=== PATIENT | female | born 1975 | race American Indian/Alaskan Native ===

== ENCOUNTER 2017-01-17 20:50 | Emergency (ER) | payer OTHER ==
[2017-01-17 21:59] LABS: Basophils % (Auto) 0.1 % (0.0-1.8); Eosinophils % (Auto) 2.2 % (0.0-4.3); Hematocrit 36.8 % (30.3-42.9); Hemoglobin 12.1 gm/dl (10.1-14.3); Mean Corpuscular HGB Conc 33 % (30-34); Mean Corpuscular Hemoglobin 26 pg (28-32); Mean Corpuscular Volume 80 fl (79-97); Platelet Count 154 K/mm3 (140-440); Red Blood Count 4.59 M/mm3 (3.65-5.03); Red Cell Distribution Width 15.1 % (13.2-15.2); White Blood Count 7.4 K/mm3 (4.5-11.0)
[2017-01-17 22:15] LABS: Alanine Aminotransferase 11 units/L (7-56); Albumin/Globulin Ratio 1.1 %; Alkaline Phosphatase 51 units/L (35-129); Anion Gap 18 mmol/L; BUN/Creatinine Ratio 15.71; Blood Urea Nitrogen 11 mg/dL (7-17); Calcium 8.7 mg/dL (8.4-10.2); Carbon Dioxide 23 mmol/L (22-30); Chloride 101.4 mmol/L (98-107); Glucose 95 mg/dL (65-100); Lipase 40 units/L (13-60); Potassium 3.9 mmol/L (3.6-5.0); Sodium 138 mmol/L (137-145); Total Protein 7.5 g/dL (6.3-8.2)
[2017-01-17 22:40] LABS: Bilirubin,Urine NEG (Negative); Blood,Urine NEG (Negative); Ketones,Urine NEG (Negative); Leukocyte Esterase,Urine NEG (Negative); Mucus,Urine FEW /HPF; Nitrite,Urine NEG (Negative); Protein,Urine <15 mg/dL mg/dL (Negative); Urobilinogen,Urine < 2.0 mg/dL (<2.0); WBC,Urine < 1.0 /HPF (0.0-6.0)
--- NOTE | 2017-01-17 23:03 | Emergency Department Report ---
HPI - General Chief Complaint: Abdominal Pain Time Seen by Provider: 01/17/17 22:48 - HPI HPI: Pt. is a 41y.o female who presents to ED c/o sharp, intermittent, non-radiating , abdominal pain x today. Pt. states pain located to epigastric region .patient states pain began after eating some [place] intensity is that was given to her by a coworker. Pt. rates the pain as 6/10 at its worst. . Pt. admits nausea, vomiting x 3 episodes today and non bloody drainage diarrhea x 2 episodes Pt. denies fever, chills, chest pain, sob, abdominal trauma or injury, diarrhea . ED Past Medical Hx - Past Medical History Previous Medical History?: Yes Additional medical history: Obesity - Surgical History Past Surgical History?: Yes Additional Surgical History: Pin placed in Left leg. - Social History Smoking Status: Never Smoker Substance Use Type: None - Medications Home Medications: Home Medications Medication Instructions Recorded Confirmed Last Taken Type Amoxicillin [Trimox CAP] 2 cap PO BID #40 capsule 06/12/13 Unknown Rx Fluticasone Propionate [Flonase] 2 spray NS QDAY #1 spray.susp 06/12/13 Unknown Rx HYDROcodone/APAP 5-325 [[place] 1 each PO Q6HR PRN #10 tablet 06/12/13 Unknown Rx 5/325 mg] Acetaminophen [Acetaminophen 8 650 mg PO TID #30 tablet.er 01/17/17 Unknown Rx Hour] Ondansetron [Zofran ODT TAB] 8 mg PO TID #20 tab.rapdis 01/17/17 Unknown Rx ED Review of Systems ROS: Stated complaint: EMESIS/DIARRHEA Other details as noted in HPI Constitutional: denies: chills, fever Eyes: denies: eye pain, eye discharge, vision change ENT: denies: ear pain, throat pain Respiratory: denies: cough, shortness of breath, wheezing Cardiovascular: denies: chest pain, palpitations Endocrine: no symptoms reported Gastrointestinal: nausea, vomiting, diarrhea. denies: abdominal pain, constipation, hematemesis Genitourinary: denies: urgency, dysuria, discharge Musculoskeletal: denies: back pain, joint swelling, arthralgia Skin: denies: rash, lesions Neurological: denies: headache, weakness, numbness, paresthesias, confusion Psychiatric: denies: anxiety, depression Hematological/Lymphatic: denies: easy bleeding, easy bruising Physical Exam - Physical Exam Vital Signs: Vital Signs 01/17/17 21:25 Temperature 99.7 F H Pulse Rate 99 H Respiratory 18 Rate Blood Pressure 149/92 [Right] O2 Sat by Pulse 99 Oximetry Physical Exam: GENERAL: Alert and oriented x3, no apparent distress, Normal Gait, atraumatic. HEAD: Head is normocephalic and a-traumatic. EYES: Pupils are equal, round, and reactive to light and accommodation. MOUTH:Mouth is well hydrated and without lesions. Tonsils nonerythematous or swollen, Uvula midline, Tongue not elevated. Mucous membranes are moist. Posterior pharynx clear, no exudate or lesions. Patent airways. NECK: Supple. Non edematous, No carotid bruits. No lymphadenopathy or thyromegaly. No C-spine tenderness LUNGS: Symetrical with respiration, No wheezing, no rales or crackles, CTAB. HEART: S1, S2 present, regular rate and rhythm without murmur, no rubs, no gallops. Non tender to palpation ABDOMEN: No organomegaly was noted,Positive bowel sounds, soft, and non- distended. . Nontender to palpation on all Quadrants, NO CVA tenderness. BACK: Full range of motion, no spinal tenderness, nontender to palpation. SKIN: Warm and dry, No lesions, No ulceration or induration present. ED Course Vital Signs 01/17/17 21:25 Temperature 99.7 F H Pulse Rate 99 H Respiratory 18 Rate Blood Pressure 149/92 [Right] O2 Sat by Pulse 99 Oximetry ED Medical Decision Making - Lab Data Result diagrams: 01/17/17 21:40 01/17/17 21:40 Laboratory Last Values WBC 7.4 K/mm3 (4.5-11.0) 01/17/17 21:40 RBC 4.59 M/mm3 (3.65-5.03) 01/17/17 21:40 Hgb 12.1 gm/dl (10.1-14.3) 01/17/17 21:40 Hct 36.8 % (30.3-42.9) 01/17/17 21:40 MCV 80 fl (79-97) 01/17/17 21:40 MCH 26 pg (28-32) L 01/17/17 21:40 MCHC 33 % (30-34) 01/17/17 21:40 RDW 15.1 % (13.2-15.2) 01/17/17 21:40 Plt Count 154 K/mm3 (140-440) 01/17/17 21:40 Lymph % (Auto) 10.1 % (13.4-35.0) L 01/17/17 21:40 [place] % (Auto) 3.8 % (0.0-7.3) 01/17/17 21:40 Eos % (Auto) 2.2 % (0.0-4.3) 01/17/17 21:40 Baso % (Auto) 0.1 % (0.0-1.8) 01/17/17 21:40 Lymph # 0.7 K/mm3 (1.2-5.4) L 01/17/17 21:40 [place] # 0.3 K/mm3 (0.0-0.8) 01/17/17 21:40 Eos # 0.2 K/mm3 (0.0-0.4) 01/17/17 21:40 Baso # 0.0 K/mm3 (0.0-0.1) 01/17/17 21:40 Seg Neutrophils % 83.8 % (40.0-70.0) H 01/17/17 21:40 Seg Neutrophils # 6.2 K/mm3 (1.8-7.7) 01/17/17 21:40 Sodium 138 mmol/L (137-145) 01/17/17 21:40 Potassium 3.9 mmol/L (3.6-5.0) 01/17/17 21:40 Chloride 101.4 mmol/L (98-107) 01/17/17 21:40 Carbon Dioxide 23 mmol/L (22-30) 01/17/17 21:40 Anion Gap 18 mmol/L 01/17/17 21:40 BUN 11 mg/dL (7-17) 01/17/17 21:40 Creatinine 0.7 mg/dL (0.7-1.2) 01/17/17 21:40 Estimated GFR > 60 ml/min 01/17/17 21:40 BUN/Creatinine Ratio 15.71 % 01/17/17 21:40 Glucose 95 mg/dL (65-100) 01/17/17 21:40 Calcium 8.7 mg/dL (8.4-10.2) 01/17/17 21:40 Total Bilirubin 0.50 mg/dL (0.1-1.2) 01/17/17 21:40 AST 14 units/L (5-40) 01/17/17 21:40 ALT 11 units/L (7-56) 01/17/17 21:40 Alkaline Phosphatase 51 units/L (35-129) 01/17/17 21:40 Total Protein 7.5 g/dL (6.3-8.2) 01/17/17 21:40 Albumin 4.0 g/dL (3.9-5) 01/17/17 21:40 Albumin/Globulin Ratio 1.1 % 01/17/17 21:40 Lipase 40 units/L (13-60) 01/17/17 21:40 HCG, Qual Negative (Negative) 01/17/17 21:40 Urine Color Yellow (Yellow) 01/17/17 22:00 Urine Turbidity Clear (Clear) 01/17/17 22:00 Urine pH 5.0 (5.0-7.0) 01/17/17 22:00 Ur Specific [place] 1.029 (1.003-1.030) 01/17/17 22:00 Urine Protein <15 mg/dl mg/dL (Negative) 01/17/17 22:00 Urine Glucose (UA) Neg mg/dL (Negative) 01/17/17 22:00 Urine Ketones Neg mg/dL (Negative) 01/17/17 22:00 Urine Blood Neg (Negative) 01/17/17 22:00 Urine Nitrite Neg (Negative) 01/17/17 22:00 Urine Bilirubin Neg (Negative) 01/17/17 22:00 Urine Urobilinogen < 2.0 mg/dL (<2.0) 01/17/17 22:00 Ur Leukocyte Esterase Neg (Negative) 01/17/17 22:00 Urine WBC (Auto) < 1.0 /HPF (0.0-6.0) 01/17/17 22:00 Urine RBC (Auto) 1.0 /HPF (0.0-6.0) 01/17/17 22:00 U Epithel Cells (Auto) 7.0 /HPF (0-13.0) 01/17/17 22:00 Urine Mucus Few /HPF 01/17/17 22:00 - Medical Decision Making 5-year-old female presents with possible gastroenteritis ED course: CBC, CMP, lipase, urinalysis, urine test ordered. Labs all within normal limits She received Zofran while in ED Discussed with patient lab findings. Discussed the patient to continue to hydrate and discussed brought diet. Discussed Tylenol as needed for pain Vital signs are normal, she is in no acute distress at the moment. Critical care attestation.: If time is entered above; I have spent that time in minutes in the direct care of this critically ill patient, excluding procedure time. ED Disposition Clinical Impression: Gastroenteritis due to food toxin Disposition: DC-01 TO HOME OR SELFCARE Is pt being admited?: No Does the pt Need Aspirin: No Condition: Stable Instructions: Abdominal Pain (ED), Gastroenteritis (ED), Food Poisoning (ED), Soft Diet (ED) Additional Instructions: Drink plenty of water daily. Follow-up with primary care physician. His symptoms worsen please return to ED Prescriptions: Acetaminophen [Acetaminophen 8 Hour] 650 mg PO TID #30 tablet.er Ondansetron [Zofran ODT TAB] 8 mg PO TID #20 tab.rapdis Referrals: PRIMARY CARE, [Primary Care Provider] - 3-5 Days ELIDA WU MD [Referring] - 3-5 Days Forms: Accompanied Note, Work/School Release Form(ED) Time of Disposition: 23:45
[2017-01-17] MEDS ORDERED: PEPCID PO ONE (23:18)
[2017-01-17] MEDS ORDERED: ZOFRAN ODT PO ONE (23:18)
[2017-01-18 00:17] VITALS: BP 139/88
== END 2017-01-18 00:17 | disposition home or self-care (01) ==
LOC: ED 20:50
DX: K52.29 Other allergic and dietetic gastroenteritis and colitis (principal); Z91.018 Allergy to other foods
CPT/HCPCS: 36415; 80053; 81001; 83690; 84703; 85025; 99283; Q0162

== ENCOUNTER 2017-03-20 16:24 | Emergency (ER) | payer OTHER ==
[2017-03-20 16:38] VITALS: BP 132/83
[2017-03-20 16:54] LABS: Basophils % (Auto) 0.6 % (0.0-1.8); Eosinophils % (Auto) 2.1 % (0.0-4.3); Hematocrit 37.5 % (30.3-42.9); Hemoglobin 12.1 gm/dl (10.1-14.3); Mean Corpuscular HGB Conc 32 % (30-34); Mean Corpuscular Hemoglobin 26 pg (28-32); Mean Corpuscular Volume 81 fl (79-97); Platelet Count 202 K/mm3 (140-440); Red Blood Count 4.65 M/mm3 (3.65-5.03); Red Cell Distribution Width 15.9 % (13.2-15.2); White Blood Count 8.6 K/mm3 (4.5-11.0)
[2017-03-20 17:12] LABS: Anion Gap 23 mmol/L; BUN/Creatinine Ratio 13; Blood Urea Nitrogen 9 mg/dL (7-17); Calcium 8.9 mg/dL (8.4-10.2); Carbon Dioxide 20 mmol/L (22-30); Chloride 102.5 mmol/L (98-107); Glucose 86 mg/dL (65-100); Sodium 141 mmol/L (137-145)
== END 2017-03-20 17:40 | disposition left against medical advice (07) ==
LOC: ED 16:24
DX: R07.9 Chest pain, unspecified (principal); Z53.21 Procedure and treatment not carried out due to patient leaving prior to being seen by health care provider
CPT/HCPCS: 36415; 80048; 84484; 85025; 93005; 93010

== ENCOUNTER 2017-07-19 22:19 | Emergency (ER) | payer OTHER ==
[2017-07-19 23:02] VITALS: BP 143/85
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
== END 2017-07-20 02:35 | disposition home or self-care (01) ==
LOC: ED 22:19
DX: M54.9 Dorsalgia, unspecified (principal); R51 Headache
CPT/HCPCS: 99282